=== PATIENT | female | born 1970 | race Caucasian/White ===

== ENCOUNTER 2021-03-17 23:52 | Emergency (ER) | payer SELFPAY ==
[~2021-03-17] VITALS: Ht 162.6 cm; Wt 59.0 kg
--- NOTE | 2021-03-18 00:04 | NUR ---
Patient to ER bed 05 to gown for evaluation. Side rails up.
[2021-03-18 00:05] VITALS: BP_SYST 131
--- NOTE | 2021-03-18 00:24 | NUR ---
PATIENT AAOX4 AND AMBULATORY C/O BURNING WITH URINATION AND CHILLS. PATIENT DENIES ANY INCREASED FREQUENCY OR URGENCY. DENIES ANY BLOOD IN URINE. NO PAIN AT THIS TIME. REMAINS AFEBRILE.
--- NOTE | 2021-03-18 00:28 | NUR ---
DR. DUFFY AT BEDSIDE FOR EVALUATION.
[2021-03-18] MEDS ORDERED: CEPH500C2 PO ×2 (00:38→01:25)
[2021-03-18] MEDS ORDERED: cephALEXin 500 MG CAPSULE PO ONE (00:45)
[2021-03-18 01:09] LABS: BILIRUBIN,URINE NEGATIVE (NEGATIVE); BLOOD, URINE NEGATIVE (NEGATIVE); CLARITY/URINE CLEAR (CLEAR); COLOR,URINE YELLOW (YELLOW); GLUCOSE,URINE NEGATIVE (NEGATIVE); KETONES,URINE 1+ (NEGATIVE); LEUKOCYTE ESTERASE ,URINE NEGATIVE (NEGATIVE); NITRITE, URINE NEGATIVE (NEGATIVE); PROTEIN URINE NEGATIVE (NEGATIVE); UROBILINOGEN,URINE 0.2 (0.2-1.0)
[2021-03-18 01:28] VITALS: BP_SYST 131
--- NOTE | 2021-03-18 01:29 | NUR ---
Patient given written and verbal discharge instructions and verbalizes understanding. DR. CLIVE CARLOS MD discussed with patient the results and treatment provided. Patient in stable condition. ID arm band removed. Rx of KEFLEX given. Patient educated on pain management and to follow up with PMD. Pain Scale 0/10 Opportunity for questions provided and answered. Medication side effect fact sheet provided.
== END 2021-03-18 01:28 | disposition home or self-care (01) ==
LOC: SED 23:52
DX: R30.0 Dysuria (principal); Z88.6 Allergy status to analgesic agent; Z79.899 Other long term (current) drug therapy
CPT/HCPCS: 81003; 99283